=== PATIENT | female | born 1980 | race Caucasian/White ===

== ENCOUNTER 2016-10-01 22:38 | Emergency (ER) | payer OTHER ==
--- NOTE | 2016-10-01 23:43 | ED ORDER SUMMARY ---
..... Patient: CALLUM FULTON OrderSheet [facility] VisitID: [id number] [address] [place] [address] 36y, F Registration Date/Time: 10/01/2016 ORDER SHEET Weight: 77.1 kg (stated) Allergies: Sulfa Antibiotics GENERAL ORDERS: GC/Chlamydia (Cervix) (...) Urgent (23:09 10/01/2016 Fadi Layton) (Ack 23:12 Nacho) (23:32 DDean R.N.) Wet Prep (Cervix) (...) Urgent (23:10 10/01/2016 Fadi Layton) (Ack 23:12 Nacho) (23:32 DDean R.N.) UA-Culture if indicated Urgent (23:10 10/01/2016 Fadi Layton) (Ack 23:12 Nacho) (23:32 DDean R.N.) Urine Urgent (23:10/01/2016 Fadi Layton) (Ack 23:12 Nacho) (23:32 DDean R.N.) MEDICATION ORDERS: Azithromycin PO 1000 mg (NOW) (23:10 10/01/2016 Fdai Layton) (Ack 23:24 RCollier R.N.) (23:32 DDean R.N.) Ceftriaxone IM 250 mg (NOW) (23:10 10/01/2016 Fadi Layton) (Ack 23:24 JOSE Golljm R.N.) (23:33 DDean R.N.) IV FLUIDS: ORDER SHEET NOTES: [Electronically signed by Javad Spencer Dr. (23:55 10/01/2016)] [Electronically signed by Melina Dominguez R.N. (23:57 10/01/2016)] [Electronically locked/signed by Melina Dominguez R.N. (23:57 10/01/2016)]
--- NOTE | 2016-10-01 23:43 | ED ORDER SUMMARY ---
..... Patient: CALLUM FULTON OrderSheet [facility] VisitID: [id number] [address] [place] [address] 36y, F Registration Date/Time: 10/01/2016 ORDER SHEET Weight: 77.1 kg (stated) Allergies: Sulfa Antibiotics GENERAL ORDERS: GC/Chlamydia (Cervix) (...) Urgent (23:09 10/01/2016 Fadi Layton) (Ack 23:12 Nacho) (23:32 DDean R.N.) Wet Prep (Cervix) (...) Urgent (23:10 10/01/2016 Fadi Layton) (Ack 23:12 Nacho) (23:32 DDean R.N.) UA-Culture if indicated Urgent (23:10 10/01/2016 Fadi Layton) (Ack 23:12 Nacho) (23:32 DDean R.N.) Urine Urgent (23:10/01/2016 Fadi Layton) (Ack 23:12 Nacho) (23:32 DDean R.N.) MEDICATION ORDERS: Azithromycin PO 1000 mg (NOW) (23:10 10/01/2016 Fadi Layton) (Ack 23:24 RCollier R.N.) (23:32 DDean R.N.) Ceftriaxone IM 250 mg (NOW) (23:10 10/01/2016 Fadi Layton) (Ack 23:24 JOSE Golljm R.N.) (23:33 DDean R.N.) IV FLUIDS: ORDER SHEET NOTES: [Electronically signed by Javad Spencer Dr. (23:55 10/01/2016)] [Electronically signed by Melina Dominguez R.N. (23:57 10/01/2016)] [Electronically locked/signed by Melina Dominguez R.N. (23:57 10/01/2016)]
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
--- NOTE | 2016-10-01 23:58 | ED MED RECONCILIATION SUMMARY ---
Patient: CALLUM FULTON Medication Reconciliation Report [facility] VisitID: [id number] [address] [place] [address] 36y, F Registration Date/Time: 10/01/2016 Weight: 77.1 kg Height/Length: 67 in. BMI: 26.6 ALLERGIES: Sulfa Antibiotics The patient's Home Medications are listed below: NONE. The source(s) of the original Home Medication information: Not obtained. The following Medications were given to the patient in the Emergency Department: Azithromycin [PO] PO 1000 mg, administered: 10/01/2016 11:25:00 PM Ceftriaxone [IM] IM 250 mg, administered: 10/01/2016 11:27:00 PM The following Medications were prescribed to the patient: Metronidazole 500 mg: Take 1 tablet orally every 12 hours for 7 days. No refill -- Javad Spencer Dr.
--- NOTE | 2016-10-01 23:58 | ED MED RECONCILIATION SUMMARY ---
Patient: CALLUM FULTON Medication Reconciliation Report [facility] VisitID: [id number] [address] [place] [address] 36y, F Registration Date/Time: 10/01/2016 Weight: 77.1 kg Height/Length: 67 in. BMI: 26.6 ALLERGIES: Sulfa Antibiotics The patient's Home Medications are listed below: NONE. The source(s) of the original Home Medication information: Not obtained. The following Medications were given to the patient in the Emergency Department: Azithromycin [PO] PO 1000 mg, administered: 10/01/2016 11:25:00 PM Ceftriaxone [IM] IM 250 mg, administered: 10/01/2016 11:27:00 PM The following Medications were prescribed to the patient: Metronidazole 500 mg: Take 1 tablet orally every 12 hours for 7 days. No refill -- Javad Spencer Dr.
--- NOTE | 2016-10-01 23:58 | ED MAR SUMMARY ---
..... Medication Administration Record [facility] [address] [place] [address] Patient: CALLUM FULTON Visit ID: [id number] 36y, F Weight: 77.1 kg Height/Length: 67 in BMI: 26.6 ALLERGIES: Sulfa Antibiotics Given 23:10/01/2016 Elise Rubalcava R.N. Medication Administered: AZITHROMYCIN [PO], Dose: 1000 mg Tablets PO. Medication Ordered: Azithromycin PO 1000 mg (NOW). Given 23:10/01/2016 Elise Rubalcava RVanessaN. Medication Administered: CEFTRIAXONE [IM], Dose: 250 mg IM. Medication Ordered: Ceftriaxone IM 250 mg (NOW).
--- NOTE | 2016-10-01 23:58 | ED MAR SUMMARY ---
..... Medication Administration Record [facility] [address] [place] [address] Patient: CALLUM FULTON Visit ID: [id number] 36y, F Weight: 77.1 kg Height/Length: 67 in BMI: 26.6 ALLERGIES: Sulfa Antibiotics Given 23:10/01/2016 Elise Rubalcava R.N. Medication Administered: AZITHROMYCIN [PO], Dose: 1000 mg Tablets PO. Medication Ordered: Azithromycin PO 1000 mg (NOW). Given 23:10/01/2016 Elise Rubalcava RVanessaN. Medication Administered: CEFTRIAXONE [IM], Dose: 250 mg IM. Medication Ordered: Ceftriaxone IM 250 mg (NOW).
--- NOTE | 2016-10-01 23:58 | ED DISCHARGE INSTRUCTIONS ---
Patient: CALLUM FULTON General Instructions [facility] VisitID: [id number] [place] [address] 36y, F Registration Date/Time: 10/01/2016 Vaginitis secondary to gonorrhea. Acute moderate bacterial vaginitis INSTRUCTIONS Your Current Medications: CONTINUE TAKING THE FOLLOWING MEDICATIONS: None*. Prescription Medications: Metronidazole 500 mg: Take 1 tablet orally every 12 hours for 7 days. No refill Follow-up: Follow up with your doctor in about two days. Call for an appointment. Screening today revealed the patient's blood pressure to be in the hypertensive range. The patient should follow up with a primary care provider for blood pressure management. ADDITIONAL INFORMATION Bacterial Vaginosis You have a bacterial infection of the vagina called bacterial vaginosis (BV). It may also be called gardnerella or non-specific vaginitis. BV occurs when the "bad" bacteria outnumber the "good" bacteria that are normally present in the vagina. Symptoms include foul-smelling vaginal discharge (most noticeable after vaginal intercourse). There may also be burning with urination. The burning is caused as the urine passes over the inflamed outer vaginal area. The cause of bacterial vaginosis is not certain. However, your risk is higher if you recently began a new sexual relationship, or have had many sex partners in the past. Your risk is also higher if you douche often. While bacterial vaginosis most often occurs only in sexually active women, this is not a true sexually transmitted disease. You did not get this from your partner. You cannot give it to your partner. The infection may be related to temporary changes in the pH of vaginal fluids after being exposed to semen. Home Care: Keep the genital area clean and free of discharge. Do this by wearing an absorbent sanitary pad and changing it often. Shower daily. When you shower, clean the outer vaginal area with plain soap and water. Do not douche during treatment unless advised to do so by your doctor. Routine douching after treatment is no longer recommended to clean the vagina. It raises your risk of vaginal infection and pelvic inflammatory disease. Avoid having sex until you have finished all antibiotic medicine and all symptoms have gone away. Wear cotton underwear or cotton-lined panty hose. Dont wear pants that are too tight. Limiting the number of sex partners you have lowers your risk of this and other vaginal infections, STDs, and HIV. Take all medicine as directed until it is gone, even if you are feeling better. If you dont do this, symptoms might return. Follow Up with your doctor if symptoms dont go away after the medicine is finished. Get Prompt Medical Attention if any of the following occur: Fever of 100.4F (38C) or higher, or as directed by your healthcare provider Lower abdominal pain Rash or joint pain Painful sores around the outer vaginal area or on your partners penis STD, (Cervicitis) [Female, Chlamydia Vs Gc: Treated] You have an infection in the cervix (the opening to the uterus). This is due to an infection with a bacteria (either "Chlamydia" or "Gonorrhea"). This is a sexually transmitted disease (STD) and is highly contagious. It is passed by sexual contact with an infected partner. Women with an infection in the cervix, may have no symptoms or only mild symptoms early in the disease. Therefore, it is possible to pass this infection without knowing you have it. When symptoms do occur, they usually appear 2 days to 3 weeks after exposure. There may be a vaginal discharge. There may also be pain or burning when passing urine. If the infection spreads to the Fallopian tubes it causes pelvic inflammatory disease ("PID"). PID causes symptoms of lower abdominal pain and fever. If not treated, Chlamydia or Gonorrhea can cause infertility (unable to have children) by scarring the Fallopian tubes. PID also increases the risk of ectopic in the future. This infection can be treated and cured. A culture test may be taken to confirm the diagnosis. Treatment is with antibiotic medicine. Home Care: Your sexual partner must be treated at the same time, even if there are no symptoms. Your partner should contact their own doctor or go to an urgent care clinic or the Public Health Department to be examined and treated. Avoid sexual activity until both you and your partner have completed all antibiotic medicine, and you have been told by your doctor that you are no longer contagious. Take all medicines until they are finished; otherwise, symptoms may recur. Learn about safe sex practices and use these in the future. The safest sex is with a partner who has tested negative and only has sex with you. Condoms offer protection from spreading some sexually transmitted diseases including Gonorrhea, Chlamydia and HIV, but are not a guarantee. Follow Up with your doctor or as advised by our staff. If a culture test was taken, you may call us in three days for the results, or as directed. Another culture test should be taken 4-6 weeks after treatment to be sure the infection has cleared. Follow up with your doctor or the Public Health Department for complete STD screening, including HIV testing. For more information about STD's, contact the National STD Hotline: . Get Prompt Medical Attention if any of the following occur: No improvement after three days of treatment New or increasing lower abdominal pain or back pain Unexpected vaginal bleeding Weakness, dizziness or fainting Repeated vomiting Inability to urinate due to pain Rash or joint pain Painful open sores around the outer vagina Enlarged painful lymph nodes (lumps) in the groin Metronidazole Oral tablet What is this medicine? METRONIDAZOLE (me troe NI da zole) is an antiinfective. It is used to treat certain kinds of bacterial and protozoal infections. It will not work for colds, flu, or other viral infections. How should I use this medicine? Take this medicine by mouth with a full glass of water. Follow the directions on the prescription label. Take your medicine at regular intervals. Do not take your medicine more often than directed. Take all of your medicine as directed even if you think you are better. Do not skip doses or stop your medicine early. Talk to your bow stapler regarding the use of this medicine in children. Special care may be needed. What side effects may I notice from receiving this medicine? Side effects that you should report to your doctor or health career orientation teacher as soon as possible: allergic reactions like skin rash or hives, swelling of the face, lips, or tongue confusion, clumsiness difficulty speaking discolored or sore mouth dizziness fever, infection numbness, tingling, pain or weakness in the hands or feet trouble passing urine or change in the amount of urine redness, blistering, peeling or loosening of the skin, including inside the mouth seizures unusually weak or tired vaginal irritation, dryness, or discharge Side effects that usually do not require medical attention (report to your doctor or health career orientation teacher if they continue or are bothersome): diarrhea headache irritability metallic taste nausea stomach pain or cramps trouble sleeping What may interact with this medicine? Do not take this medicine with any of the following medications: alcohol or any product that contains alcohol amprenavir oral solution cisapride disulfiram dofetilide dronedarone paclitaxel injection pimozide ritonavir oral solution sertraline oral solution sulfamethoxazole-trimethoprim injection thioridazine ziprasidone This medicine may also interact with the following medications: cimetidine lithium other medicines that prolong the QT interval (cause an abnormal heart rhythm) phenobarbital phenytoin warfarin What if I miss a dose? If you miss a dose, take it as soon as you can. If it is almost time for your next dose, take only that dose. Do not take double or extra doses. Where should I keep my medicine? Keep out of the reach of children. Store at room temperature below 25 degrees C (77 degrees F). Protect from light. Keep container tightly closed. Throw away any unused medicine after the expiration date. What should I tell my health care provider before I take this medicine? They need to know if you have any of these conditions: anemia or other blood disorders disease of the nervous system fungal or yeast infection if you drink alcohol containing drinks liver disease seizures an unusual or allergic reaction to metronidazole, or other medicines, foods, dyes, or preservatives or trying to get breast-feeding What should I watch for while using this medicine? Tell your doctor or health career orientation teacher if your symptoms do not improve or if they get worse. You may get drowsy or dizzy. Do not drive, use machinery, or do anything that needs mental alertness until you know how this medicine affects you. Do not stand or sit up quickly, especially if you are an older patient. This reduces the risk of dizzy or fainting spells. Avoid alcoholic drinks while you are taking this medicine and for three days afterward. Alcohol may make you feel dizzy, sick, or flushed. If you are being treated for a sexually transmitted disease, avoid sexual contact until you have finished your treatment. Your sexual partner may also need treatment. You have been given the following additional information: Vaginitis, Bacterial Cervicitis (STD), Treated Metronidazole Oral tablet (Electronically signed by Javad Spencer Dr. 10/01/2016 23:55)
== END 2016-10-01 23:52 | disposition home or self-care (01) ==
LOC: ED SRH 22:38
DX: A54.02 Gonococcal vulvovaginitis, unspecified (principal); N76.0 Acute vaginitis; B96.89 Other specified bacterial agents as the cause of diseases classified elsewhere; Z97.5 Presence of (intrauterine) contraceptive device; F17.210 Nicotine dependence, cigarettes, uncomplicated
CPT/HCPCS: 90004; 90148; 90195; 90469; 91227; 91228; 93070